=== PATIENT | male | born 1945 | race Caucasian/White ===

== ENCOUNTER 2021-05-12 12:26 | Outpatient (REF) | payer MEDICARE, OTHER, SELFPAY ==
[2021-05-12 14:52] LABS: Erythrocyte Sedimentation Rate 13 MM/HR (0-15)
[2021-05-13 09:12] LABS: Lyme Abs Screen <0.90 index
== END 2021-05-12 12:27 | disposition home or self-care (01) ==
LOC: HO.LAB 12:26
PROVIDERS: PCP Internal Medicine; Visit Provider Psychiatry & Neurology Neurology
DX: G95.9 Disease of spinal cord, unspecified (principal); M54.16 Radiculopathy, lumbar region
CPT/HCPCS: 36415; 85652; 86617; 86618